=== PATIENT | female | born 1950 | race Caucasian/White ===

== ENCOUNTER → 2024-06-27 | Day surgery (SDC) | payer MEDICARE ==
--- NOTE | 2024-07-04 10:10 | MM ---
Reason for Exam: Post Procedure Mammogram. Risk Values: Joy 5 year model risk: 1.2%. NCI Lifetime model risk: 3.0%. Tissue Density: Left: The breasts are heterogeneously dense, which may obscure small masses. Pathology Description: Location: axilla. Marker Left Behind. Needle Type: Bard 14g x 10cm Cores: 3 Gauge: 14 Pathology Results: Results pending. Pathology Description: Location: 9 o'clock. Marker Left Behind. Needle Type: Mammotome Cores: 3 Skin Nicks: 1 Gauge: 13 The procedure of ultrasound guided core biopsy was explained to the patient. Benefits, alternatives, and risks were discussed. An informed consent was then obtained. The patient was placed in supine positioning for imaging and for the procedure. The overlying skin was prepped and draped in usual sterile fashion. Lidocaine buffered with bicarbonate was used as anesthetic into the skin and subcutaneous tissue up to area of concern in the left breast. A wendy was made with surgical scalpel. Under ultrasound guidance, a 12-gauge vacuum assisted biopsy gun device was used to obtain 3 core samples. Following this, a biopsy clip was placed in the lesion. Attention was then turned to the axillary lymph node with thickened cortex 3 x 14-gauge core biopsies were attempted through the cortex. The patient tolerated the procedure well without any immediate complication. The patient was kept in the radiology department for short stay after the procedure and then discharged home in stable condition. Postprocedure mammogram: The patient was transferred to mammography for physician ordered post procedure mammogram for clip placement verification. Post procedure mammogram demonstrates appropriate placement of clip within the left breast mass at 8:00 8 cm from the nipple. The biopsy clip in the axillary lymph node is not in the [id number] on mammography. Impression: Successful, uncomplicated ultrasound guided core biopsy of area of concern in the left breast and left axilla, full pathology results to follow. [facility], , 06/27/2024 3:06 PM. Pathology Results: Result: Malignant, Invasive ductal carcinoma. Pathology and radiology were reviewed. Findings are concordant. A. LEFT BREAST, 9:00, ULTRASOUND GUIDED NEEDLE CORE BIOPSY: Invasive moderately differentiated ductal carcinoma (Grade 2). See Surgical Pathology Cancer Case Summary. B. LEFT AXILLA LYMPH NODE, NEEDLE CORE BIOPSY: Benign lymph node tissue. Overall Assessment: Malignant Assessment: MG diagnostic mammo LT wo CAD. - Left: Known biopsy proven malignancy, BI-RAD 6. Management: Surgical Consultation of the left breast. Electronically signed and approved by: Noe Begum DO
== END | disposition home or self-care (01) ==
LOC: RADUSWWP 12:39
DX: C50.812 Malignant neoplasm of overlapping sites of left female breast (principal); R92.8 Other abnormal and inconclusive findings on diagnostic imaging of breast; R92.333 Mammographic heterogeneous density, bilateral breasts
CPT/HCPCS: 88305; 88342; 88341; 77065; 19083; A4648

== ENCOUNTER → 2024-08-29 | Outpatient (CLI) | payer MEDICARE ==
[2024-08-29 13:45] VITALS: BP 166/70; PULSE 79; RESP 18; TEMP 97.6
--- NOTE | 2024-08-29 14:18 | P.BCPN ---
Subjective Progress Note Date: 08/29/24 Principal diagnosis: left breast IDC [id number] History of Present Illness Consult date: 08-29-24 Reason for Consult: Biopsy-proven left breast invasive ductal carcinoma Requesting physician: Jones Connors History of present illness: Jessica is a 73 year-old female seen in consultation for Dr. Iván Renee. She underwent a bilateral mammogram on 2323 at [facility]. This revealed a slight lightly spiculated mass in the posterior third of the left breast at the 8 to 9 o'clock position. An ultrasound was recommended. No lesions of concern were identified in the right breast. The mammograms were personally reviewed and interpreted. An ultrasound was performed on April 15, 2024 [place]. This revealed a 1.1 x 1.7 cm lesion in the 8 o'clock position of the left breast. Ultrasound core biopsy was recommended. The patient presented for ultrasound core biopsy on 06 27 24. This revealed a 1.9 x 0.99 cm lesion in the 8 to 9 o'clock position of the left breast as well as a slightly enlarged lymph node with a cortex which was thickened. Biopsy of both of these areas were was performed. The lesion at 9:00 revealed invasive moderately differentiated ductal carcinoma grade 2. The lymph node biopsy was negative. The lesion in the breast is ER/AL positive and HER2 negative. She has not had any surgery on her breast prior to this. The patient was seen in consultation by Dr. Minor on 07-17-19 [facility]. Patient did not feel any lesions of concern in her breast. Patient case presented at tumor board on 07-30-24. Patient for needle localization lumpectomy and resection on 09-03-24. She would like to avoid sentinal node biopsy. She was called with recommendation on 07-30-24 and understands. 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 Minor also medical oncology reviewed Family history: Mother: Breast cancer in her 60s Sister: Breast cancer in her 60s: Daughter: Leiomyosarcoma of the left kidney that became metastatic originally diagnosed in her 20s Daughter: Lobular carcinoma in situ status postsurgical excision (treated here) paternal grandfather: prostate cancer Hormonal history: Menarche: 13 age at first : 26 did not breast feed menopause: 50s Oral contraceptives for approximately 10 years Hysterectomy and bilateral salpingo-oophorectomy in 2016 for thickened endometrium/no evidence of malignancy this was complicated by lymphedema but states pre cancer Surgical history: Total abdominal hysterectomy with bilateral salpingo-oophorectomy tubaligation tonsil Medical history: hypothyroid Social history: nicotine: none alcohol: none drugs: none Review of Systems - Constitutional Denies fever, Denies weight loss - EENT Eyes: denies blurred vision Ears: deny: decreased hearing, tinnitus Ears, nose, mouth and throat: Denies dysphagia - Breasts bilateral: as per HPI - Cardiovascular Denies chest pain, Denies shortness of breath - Respiratory Denies cough - Gastrointestinal Reports as per HPI - Genitourinary Genitourinary: Denies dysuria, Denies hematuria Menstruation: Reports post hysterectomy - Musculoskeletal Musculoskeleta Comment(s): back pain in the past, ? sciatica resolved Reports as per HPI - Integumentary Integumentary Comment(s): lymphedema Denies rash, Denies unusual bruising - Neurological Denies headaches, Denies syncope - Psychiatric Reports as per HPI - Endocrine Endocrine Comment(s): hypothyroid Reports as per HPI - Hematologic/Lymphatic Denies easy bleeding, Denies easy bruising - Allergic/Immunologic Reports seasonal allergies Past Medical History Past Medical History: Thyroid Disorder Additional Past Medical History / Comment(s): Lymphedema lower extremities History of Any Multi-Drug Resistant Organisms: None Reported Past Surgical History: Hysterectomy, Tonsillectomy Additional Past Anesthesia/Blood Transfusion Reaction / Comm: slow to wake up Past Psychological History: No Psychological Hx Reported Smoking Status: Never smoker Past Alcohol Use History: None Reported Past Drug Use History: None Reported Medications and Allergies Home Medications Medication Instructions Recorded Confirmed Type Folic Acid 1 mg PO DAILY 06/17/24 07/24/24 History Levothyroxine Sodium [Synthroid] 137 mcg PO DAILY 06/17/24 07/24/24 History Multivitamin/Iron/Folic Acid 1 each PO DAILY 06/17/24 07/24/24 History [Centrum Adults Tablet] Potassium Chloride 10 meq PO DAILY 06/17/24 07/24/24 History hydroCHLOROthiazide [Hydrodiuril] 50 mg PO DAILY 06/17/24 07/24/24 History Allergies Allergy/AdvReac Type Severity Reaction Status Date / Time Sulfa (Sulfonamide Allergy Anaphylaxis Verified 07/24/24 08:38 Antibiotics) Objective - Vital Signs Vital Signs: Vital Signs Temp 97.6 F 08/29/24 13:42 Pulse 79 08/29/24 13:42 Resp 18 08/29/24 13:42 BP 166/70 08/29/24 13:42 Pulse Ox 97 08/29/24 13:42 FiO2 Intake & Output 08/28/24 08/29/24 08/29/24 18:59 06:59 18:59 Weight 122.47 kg - Constitutional General appearance: Present: cooperative - EENT Eyes: Present: EOMI ENT: Present: hearing grossly normal - Neck Neck: Present: normal ROM - Breast Breast-Narrative: Breast Exam: BRA: 38C Inspection: Bilateral grade 3 ptosis Palpation: Right breast: Multi positional exam fibrocystic changes, no dominant masses or nodules of concern Right axilla: No adenopathy of concern Left breast: Multi positional exam fullness in the 8 to 9 o'clock position approximately 1 x 1 cm in size close to the muscle of the chest wall Left axilla: No adenopathy of concern Fungal infection under both breast Ptosis: Grade 3: Right Breast Ptosis, Left Breast Ptosis Breast: right: normal, left: mass (1 cm 8-9 O Clock position) Right Breast Palpation (Multi-positional): No dominant masses Left Breast Palpation (Multi-positional): Other Right Axilla Palpation: No adenopathy of concern Left Axilla Palpation: No adenopathy of concern - Respiratory Respiratory: bilateral: CTA - Cardiovascular Rhythm: regular Heart sounds: normal: S1, S2 - Integumentary Integumentary: Present: normal turgor - Musculoskeletal Musculoskeletal: Present: gait normal - Psychiatric Psychiatric: Present: A&O x's 3, appropriate affect, intact judgment & insight Assessment and Plan Plan: Bilateral mammogram and left breast ultrasound personally reviewed and interpreted Pathology report personally reviewed; invasive ductal carcinoma ER/AL positive HER2 negative grade 2 left breast Impression: Left breast grade 2 invasive ductal carcinoma 1.9 x .9 cm in size; lymph node biopsy negative Plan: Presentation of case at tumor board done on 07-30-24 left breast needle localization and lumpectomy, possible oncoplastic tissue transfer, no sentinal node biopsy We have discussed treatment options regarding stage IA invasive ductal cancer. For the breast we have discussed mastectomy versus needle localization and lumpectomy. She would like to have a needle localization and lumpectomy. We have also discussed sentinel node biopsy however at 73 we have discussed that this may not be necessary. She would like to avoid sentinel node biopsy. Risks include but are not limited to bleeding, infection, reaction to the anesthetic. If margins were to be positive then further resection would be necessary. She understands and wishes to proceed. Prep Education Provided - Preoperative Education Given Pre-Op Kit Given Date: 08/29/24 - Functional Assessment Performed?: Yes Referal Provided?: No - Smoking Cessation Education Provided?: No (non smoker)
== END ==
LOC: WWCWWP 13:01
PROVIDERS: ATTEND Surgery
DX: C50.912 Malignant neoplasm of unspecified site of left female breast (principal); Z88.2 Allergy status to sulfonamides; Z80.3 Family history of malignant neoplasm of breast

== ENCOUNTER 2024-09-03 09:07 | Day surgery (SDC) | payer MEDICARE ==
[~2024-09-03 09:07] MED LIST: HYDROmorphone 0.5 MG/0.5 ML SYRINGE IVP PRN; LACTATED RINGERS 1,000 ML IV SCH; METHYLENE BLUE 50 MG/10 ML AMPUL MISCELLANE ONE; MIDAZOLAM 2 MG/2 ML VIAL IV PRN
[2024-09-03] MEDS: ACETAMINOPHEN TAB 500 MG TAB PO PRN (10:30)
[2024-09-03] MEDS: ALPRAZolam 0.25 MG TAB PO STA (10:31)
[2024-09-03] MEDS: LACTATED RINGERS 1,000 ML IV ONE (10:32)
[2024-09-03] MEDS: LIDOCAINE 1% INJ 10MG/ML (20 ML MDV) SQ ONE ×3 (11:02→13:20)
[2024-09-03] MEDS: SODIUM BICARB 8.4% 50 ML VIAL (1 MEQ/ML) MISCELLANE ONE (11:02)
[2024-09-03] MEDS: METHYLENE BLUE 50 MG/10 ML AMPUL MISCELLANE ONE (11:10)
[2024-09-03] MEDS: DEXAMETHASONE SOD PHOSPHATE 4 MG/ML 1 ML VIAL IV ONE (11:44)
[2024-09-03] MEDS: HEPARIN SODIUM,PORCINE 5,000 UNIT/ML 1 ML VIAL SQ PRN (11:44)
[2024-09-03] MEDS: ONDANSETRON 4 MG/2 ML VIAL IVP ONE (11:44)
--- NOTE | 2024-09-03 11:48 | P.NAPBC ---
NAPBC Queries - NAPBC Queries Was patient's case review presented at [facility] tumor board? If no, comment.: Yes Was patient's pathology reviewed at [facility]? If no, comment.: Yes Was breast conservation surgery offered? If no, comment.: Yes Was sentinel node biopsy offered? If no, comment.: Yes Was diagnosis confirmed by percutaneous core biopsy? If no, comment.: Yes Is patient mastectomy patient?: No Was a preop referral to reconstructive surgeon offered?: No Clinical Stage: left breast invasive ductal cancer [id number]+Pr+Her2-G2 stage I
[2024-09-03] MEDS ORDERED: LIDOCAINE 1% INJ 10MG/ML (20 ML MDV) ONE (12:12)
[2024-09-03] MEDS ORDERED: PROPOFOL 10 MG/ML 20 ML VIAL IV ONE (12:12)
[2024-09-03] MEDS ORDERED: fentaNYL (PF) 50 MCG/ML 2 ML AMP ONE (12:12)
[2024-09-03] MEDS ORDERED: MIDAZOLAM 2 MG/2 ML VIAL ONE (12:12)
[2024-09-03] MEDS ORDERED: KETAMINE HCL IN 0.9 % NACL 50 MG/5 ML SYRINGE ONE (12:12)
[2024-09-03] MEDS ORDERED: KETOROLAC 15 MG/ML 1 ML VIAL ONE (12:12)
[2024-09-03] MEDS ORDERED: ePHEDrine 50 MG/ML 1 ML VIAL ONE (12:12)
[2024-09-03] MEDS ORDERED: SUCCINYLCHOLINE CHLORIDE 200 MG/10 ML VIAL IV ONE (12:12)
[2024-09-03] MEDS: ceFAZolin 3 GM in SODIUM CHLORIDE 0.9% 100 ML IVPB PRN (12:26)
[2024-09-03] MEDS: SODIUM CHLORIDE 0.9% 100 ML with ceFAZolin 2,000 MG IV ONE (12:26)
--- NOTE | 2024-09-03 13:16 | P.BCAON ---
Date of Procedure: 09/03/24 Preoperative Diagnosis: Left breast invasive lobular carcinoma Postoperative Diagnosis: Same Procedure(s) Performed: Left breast needle localization lumpectomy Anesthesia: MASON Surgeon: Antoinette Higginbotham Estimated Blood Loss (ml): 10 IV fluids (ml): 300 Pathology: other (Breast tissue) Condition: stable Disposition: same day Indications for Procedure: Biopsy-proven left breast invasive lobular carcinoma Operative Findings: Fatty breast tissue Description of Procedure: The patient was first seen in the radiology department for needle localization of the area of concern was performed via ultrasound guidance. At that time injection of methylene blue was also injected at the site of the tumor. The patient was then brought to the operative suite. Following induction of anesthesia the left breast was prepped and draped in a sterile fashion. An incision was made and carried down to the hook of the needle. Surrounding tissue was excised. Posteriorly dissection was onto the pectoralis muscle. Anteriorly dissection was through the skin taking the skin. The specimen was removed. It was painted for orientation. Radiograph of the specimen revealed the specimen was removed . A new medial margin was obtained and this was painted for orientation. The anterior margin was reexcised excising skin. After reassured that hemostasis was attained the wound was well irrigated. Titanium clips were placed. The tissues were brought together using 3-0 Vicryl suture. The skin was closed using interrupted subcutaneous knot 3-0 Vicryl sutures. This was followed by a 4-0 Monocryl suture. The patient tolerated the procedure in stable condition. 20 cc of 1% lidocaine were injected into the incision. All instrument and sponge counts were correct at the end of the procedure.
[2024-09-03 13:49] VITALS: TEMP 97.9
[2024-09-03 15:01] VITALS: BP 157/74; PULSE 91; RESP 18
== END 2024-09-03 15:05 | disposition home or self-care (01) ==
LOC: OR 09:07
PROVIDERS: ATTEND Surgery
DX: C50.312 Malignant neoplasm of lower-inner quadrant of left female breast (principal); Z17.0 Estrogen receptor positive status [ER+]; Z17.21 Progesterone receptor positive status; Z17.32 Human epidermal growth factor receptor 2 negative status; I10 Essential (primary) hypertension; E03.9 Hypothyroidism, unspecified; I89.0 Lymphedema, not elsewhere classified; Z79.890 Hormone replacement therapy; Z79.899 Other long term (current) drug therapy; Z80.3 Family history of malignant neoplasm of breast; Z88.2 Allergy status to sulfonamides
CPT/HCPCS: 19301; 19285; 84132; 88307; 77065; 76098; C1819; J2250; J0330; J1644; J1100; J2405; J0690; J2003; J3010; J1885; J2704; Q9968

== ENCOUNTER → 2024-09-12 | Outpatient (CLI) | payer MEDICARE ==
[2024-09-12 13:48] VITALS: BP 188/87; PULSE 88; RESP 16; TEMP 97.8
--- NOTE | 2024-09-12 13:51 | P.BCPO ---
Progress Note - Text Progress Note Date: 09/12/24 Jessica is status post left breast lumpectomy on 09-03-24. Her pathology was (+) for IDC and DCIS, all margins (-). Tumor size 23 mm. DCIS up to 16 mm. She tolerated the procedure without difficulty. Examination: Lungs: Clear Heart: Regular rate and rhythm Incision: Clean and dry some reactive erythema appears to be present at the incision site it does not appear to be infected Impression: Patient doing well postoperative Plan: Follow-up medical oncology Follow-up radiation oncology Patient will follow-up here in 3 weeks to reevaluate the incision site she will follow-up sooner any questions or concerns Post Op Education - Post Op Education Post Op Education Provided Date: 09/12/24 - Functional Assessment Performed?: Yes (passed arm abduction)
== END ==
LOC: WWCWWP 12:45
PROVIDERS: ATTEND Surgery
DX: D05.10 Intraductal carcinoma in situ of unspecified breast (principal); Z98.890 Other specified postprocedural states; Z88.2 Allergy status to sulfonamides

== ENCOUNTER → 2024-10-03 | Outpatient (CLI) | payer MEDICARE ==
[2024-10-03 14:02] VITALS: BP 186/68; PULSE 85; RESP 18; TEMP 97.8
--- NOTE | 2024-10-03 14:07 | P.BCPO ---
Progress Note - Text Progress Note Date: 10/03/24 10-03-24 Jessica is status post left breast lumpectomy on 09-03-24. She was seen on 09-12-24. Her pathology was (+) for IDC and DCIS, all margins (-). Tumor size 23 mm. DCIS up to 16 mm. She tolerated the procedure without difficulty. At that time there was some slight erythema at the incision site and she is coming back to re-evaluate this area. Examination: Lungs: Clear Heart: Regular rate and rhythm Incision: Clean and dry no evidence of seroma, erythema is resolved Impression: Patient doing well postoperative Plan: Follow-up medical oncology, no chemotherapy at this time hormone therapy after radiation Follow-up radiation oncology; will see them next week in [place] Dr. Silva Patient will follow-up 4 months Additional CC's: Paula Peterson
== END ==
LOC: WWCWWP 13:39
PROVIDERS: ATTEND Surgery
DX: Z98.890 Other specified postprocedural states (principal); Z88.2 Allergy status to sulfonamides